=== PATIENT | female | born 1950 | race American Indian/Alaskan Native ===

== ENCOUNTER 2016-12-18 10:19 | Emergency (ER) | payer MEDICARE ==
[2016-12-18] MEDS ORDERED: NS 0.9% 1000 ML* 1,000 ML IV ONE (10:49)
[2016-12-18] MEDS ORDERED: Ondansetron INJ* 2 MG/ML VIAL IV ONE (11:20)
[2016-12-18] MEDS ORDERED: Meclizine TAB* 12.5 MG PO ONE (11:20)
[2016-12-18] MEDS ORDERED: Meclizine TAB* 12.5 MG ONE (11:23)
[2016-12-18] MEDS ORDERED: Ondansetron INJ* 2 MG/ML VIAL ONE (11:23)
--- NOTE | 2016-12-18 11:25 | RAD ---
INDICATION: Dizziness. COMPARISON: There are no prior studies available for comparison. TECHNIQUE: Contiguous axial sections of the brain were obtained from the skull base to the vertex without contrast. FINDINGS: The ventricles, cisterns and sulci are enlarged consistent with diffuse atrophy. No significant focal abnormality or mass effect is seen. There is no evidence for hemorrhage. No significant focal osseous abnormality is seen. The visualized portion of the paranasal sinuses and mastoid air cells appear clear. IMPRESSION: NO EVIDENCE FOR GROSS ACUTE INFARCT, MASS EFFECT OR HEMORRHAGE.
[2016-12-18 11:37] LABS: Hematocrit 44 % (35-47); Hemoglobin 14.5 g/dl (12.0-16.0); Mean Corpuscular HGB Conc 33 g/dl (31-36); Mean Corpuscular Hemoglobin 30 pg (27-31); Mean Corpuscular Volume 91 fL (80-97); Mean Platelet Volume 10 um3 (7.4-10.4); Red Blood Count 4.82 10^6/ul (4.0-5.4); Red Cell Distribution Width 14 % (10.5-15); White Blood Count 4.9 10^3/ul (3.5-10.8)
[2016-12-18 11:48] LABS: ALT 29 U/L (7-52); AST 19 U/L (13-39); Albumin 4.3 g/dL (3.2-5.2); Alkaline Phosphatase 69 U/L (34-104); Anion Gap 8 mmol/L (2-11); BUN/Creatinine Ratio 14.3 (8-20); Blood Urea Nitrogen 11 mg/dL (6-24); CO2 Carbon Dioxide 27 mmol/L (22-32); Calcium 9.5 mg/dL (8.6-10.3); Chloride 104 mmol/L (101-111); EGFR African American 96.8 (>60); EGFR Non-African American 75.2 (>60); Globulin 3.1 g/dL (2-4); Glucose 102 mg/dL (70-100); Magnesium 2.1 mg/dL (1.9-2.7); Potassium 3.5 mmol/L (3.5-5.0); Sodium 139 mmol/L (133-145); Total Protein 7.4 g/dL (6.4-8.9)
[2016-12-18 12:20] LABS: TSH (Thyroid Stimulating Horm) 1.99 mcIU/mL (0.34-5.60)
[2016-12-18 13:25] LABS: Alcohol < 10 mg/dL (<10)
[2016-12-18 13:26] LABS: C Reactive Protein 3.27 mg/L (< 5.00)
[2016-12-18 14:00] VITALS: BP 134/86
--- NOTE | 2016-12-19 08:22 | ED ---
Milton Hernandez Thomas, scribed for Wilfrido Irving MD on 12/18/16 at 1106 . Dizziness - HPI Summary HPI Summary: The pt is a 66 y/o F presenting to the ED c/o dizziness that began today at 09: 00. She is unsure whether she became dizzy from vigorous head movements. Her dizziness is characterized as room spinning. Her symptoms of generalized illness began 4 days ago. Pt additionally c/o intermittent nausea (onset last night after taking Delsym), runny nose, cough, postnasal drip, and SOB (when I get that feeling). Pt denies vomiting, CP, and palpitations. She has not had symptoms like these before. She describes GERD-related indigestion two days ago after having a couple beers, which was resolve dafter taking Nexium. PMHx: previously healthy. - History Of Current Complaint Chief Complaint: EDDizziness Stated Complaint: COUGH,DIZZINESS Time Seen by Provider: 12/18/16 10:49 Hx Obtained From: Patient Onset/Duration: Still Present, Gradually - onset this AM at 09:00 Timing: Constant Character: Room Spinning Aggravating Factor(s): Other - unsure whether movement worsens Alleviating Factor(s): Nothing Associated Signs And Symptoms: Positive: Nausea - intermittent, SOB, Other: - POS: runny nose, cough, postnasal drip; NEG: vomiting. Negative: Chest Pain, Palpitations - Allergies/Home Medications Allergies/Adverse Reactions: Allergies Allergy/AdvReac Type Severity Reaction Status Date / Time Amoxicillin Allergy Swelling Verified 11/25/15 15:29 Of Face,Lips,& Throat Sulfa Antibiotics Allergy Swelling Verified 11/25/15 15:29 Of Face,Lips,& Throat PMH/Surg Hx/FS Hx/Imm Hx Previously Healthy: Yes Endocrine/Hematology History: Denies: Hx Diabetes, Hx Systemic Lupus Erythematosus Cardiovascular History: Denies: Hx Congestive Heart Failure, Hx Hypertension Respiratory History: Denies: Hx Asthma History: Denies: Hx Dialysis, Hx Renal Disease Musculoskeletal History: Denies: Hx Rheumatoid Arthritis - Cancer History Hx Chemotherapy: No Hx Radiation Therapy: No Infectious Disease History: No Infectious Disease History: Denies: History Other Infectious Disease, Traveled Outside the [place] in Last 30 Days - Family History Known Family History: Positive: Hypertension - Social History Alcohol Use: Rare Substance Use Type: Reports: None Smoking Status (MU): Former Smoker Review of Systems Constitutional: Negative Eyes: Negative ENT: Other - POS: postnasal drip Positive: Nasal Discharge Cardiovascular: Negative Negative: Palpitations, Chest Pain Positive: Shortness Of Breath - ("when I get that feeling"), Cough Positive: Nausea - intermittent nausea (onset last night after taking Delsym). Negative: Vomiting Genitourinary: Negative Musculoskeletal: Negative Skin: Negative Neurological: Other - POS: dizziness, onset today at 09:00 ("room spinning") Psychological: Normal All Other Systems Reviewed And Are Negative: Yes Physical Exam - Summary Physical Exam Summary: VITAL SIGNS: Reviewed. GENERAL: ~Patient is a well-developed and nourished normal who is lying comfortable in the stretcher. ~Patient is not in any acute respiratory distress. HEAD AND FACE: No signs of trauma. ~No ecchymosis, hematomas or skull depressions. No sinus tenderness. EYES: PERRLA, EOMI x 2, No injected conjunctiva, no nystagmus. EARS: Hearing grossly intact. Ear canals and tympanic membranes are within normal limits. MOUTH: Oropharynx within normal limits. NECK: Supple, trachea is midline, no adenopathy, no JVD, no carotid bruit, no c- spine tenderness, neck with full ROM. CHEST: Symmetric, no tenderness at palpation LUNGS: Clear to auscultation bilaterally. No wheezing or crackles. CVS: Regular rate and rhythm, S1 and S2 present, no murmurs or gallops appreciated. ABDOMEN: Soft, non-tender. No signs of distention. No rebound no guarding, and no masses palpated. Bowel sounds are normal. EXTREMITIES: FROM in all major joints, no edema, no cyanosis or clubbing. NEURO: Alert and oriented x 3. No acute neurological deficits. Speech is normal and follows commands. SKIN: Dry and warm Triage Information Reviewed: Yes Vital Signs On Initial Exam: Initial Vitals Temp Pulse Resp BP Pulse Ox 97.8 F 74 16 162/116 99 12/18/16 10:23 12/18/16 10:12/18/16 10:12/18/16 10:12/18/16 10:23 Vital Signs Reviewed: Yes Diagnostics - Vital Signs Vital Signs Temp Pulse Resp BP Pulse Ox 12/18/16 10: 97.8 F 74 16 162/116 99 - Laboratory Lab Results: Lab Results 12/18/16 12/18/16 12/18/16 Range/Units 11:18 11:18 11:18 WBC 4.9 (3.5-10.8) 10^3/ul RBC 4.82 (4.0-5.4) 10^6/ul Hgb 14.5 (12.0-16.0) g/dl Hct 44 (35-47) % MCV 91 (80-97) fL MCH 30 (27-31) pg MCHC 33 (31-36) g/dl RDW 14 (10.5-15) % Plt Count 221 (150-450) 10^3/ul MPV 10 (7.4-10.4) um3 Neut % (Auto) 71.8 (38-83) % Lymph % (Auto) 17.3 L (25-47) % [place] % (Auto) 8.0 (1-9) % Eos % (Auto) 1.6 (0-6) % Baso % (Auto) 1.3 (0-2) % Absolute Neuts (auto) 3.5 (1.5-7.7) 10^3/ul Absolute Lymphs (auto) 0.8 L (1.0-4.8) 10^3/ul Absolute Monos (auto) 0.4 (0-0.8) 10^3/ul Absolute Eos (auto) 0.1 (0-0.6) 10^3/ul Absolute Basos (auto) 0.1 (0-0.2) 10^3/ul Absolute Nucleated RBC 0 10^3/ul Nucleated RBC % 0 Sodium 139 (133-145) mmol/L Potassium 3.5 (3.5-5.0) mmol/L Chloride 104 (101-111) mmol/L Carbon Dioxide 27 (22-32) mmol/L Anion Gap 8 (2-11) mmol/L BUN 11 (6-24) mg/dL Creatinine 0.77 (0.51-0.95) mg/dL Est GFR ( Amer) 96.8 (>60) Est GFR (Non-Af Amer) 75.2 (>60) BUN/Creatinine Ratio 14.3 (8-20) Glucose 102 H (70-100) mg/dL Lactic Acid 1.6 (0.5-2.0) mmol/L Calcium 9.5 (8.6-10.3) mg/dL Magnesium 2.1 (1.9-2.7) mg/dL Total Bilirubin 0.50 (0.2-1.0) mg/dL AST 19 (13-39) U/L ALT 29 (7-52) U/L Alkaline Phosphatase 69 (34-104) U/L Troponin I 0.00 (<0.04) ng/mL C-Reactive Protein 3.27 (< 5.00) mg/L B-Natriuretic Peptide ( - 100) pg/mL Total Protein 7.4 (6.4-8.9) g/dL Albumin 4.3 (3.2-5.2) g/dL Globulin 3.1 (2-4) g/dL Albumin/Globulin Ratio 1.4 (1-3) TSH 1.99 (0.34-5.60) mcIU/mL Serum Alcohol < 10 (<10) mg/dL 12/18/16 Range/Units 11:18 WBC (3.5-10.8) 10^3/ul RBC (4.0-5.4) 10^6/ul Hgb (12.0-16.0) g/dl Hct (35-47) % MCV (80-97) fL MCH (27-31) pg MCHC (31-36) g/dl RDW (10.5-15) % Plt Count (150-450) 10^3/ul MPV (7.4-10.4) um3 Neut % (Auto) (38-83) % Lymph % (Auto) (25-47) % [place] % (Auto) (1-9) % Eos % (Auto) (0-6) % Baso % (Auto) (0-2) % Absolute Neuts (auto) (1.5-7.7) 10^3/ul Absolute Lymphs (auto) (1.0-4.8) 10^3/ul Absolute Monos (auto) (0-0.8) 10^3/ul Absolute Eos (auto) (0-0.6) 10^3/ul Absolute Basos (auto) (0-0.2) 10^3/ul Absolute Nucleated RBC 10^3/ul Nucleated RBC % Sodium (133-145) mmol/L Potassium (3.5-5.0) mmol/L Chloride (101-111) mmol/L Carbon Dioxide (22-32) mmol/L Anion Gap (2-11) mmol/L BUN (6-24) mg/dL Creatinine (0.51-0.95) mg/dL Est GFR ( Amer) (>60) Est GFR (Non-Af Amer) (>60) BUN/Creatinine Ratio (8-20) Glucose (70-100) mg/dL Lactic Acid (0.5-2.0) mmol/L Calcium (8.6-10.3) mg/dL Magnesium (1.9-2.7) mg/dL Total Bilirubin (0.2-1.0) mg/dL AST (13-39) U/L ALT (7-52) U/L Alkaline Phosphatase (34-104) U/L Troponin I (<0.04) ng/mL C-Reactive Protein (< 5.00) mg/L B-Natriuretic Peptide 102 H ( - 100) pg/mL Total Protein (6.4-8.9) g/dL Albumin (3.2-5.2) g/dL Globulin (2-4) g/dL Albumin/Globulin Ratio (1-3) TSH (0.34-5.60) mcIU/mL Serum Alcohol (<10) mg/dL Result Diagrams: 12/18/16 11:18 12/18/16 11:18 Lab Statement: Any lab studies that have been ordered have been reviewed, and results considered in the medical decision making process. - CT CT Brain CT Interpretation: No Acute Changes - NO EVIDENCE FOR GROSS ACUTE INFARCT, MASS EFFECT OR HEMORRHAGE. CT Interpretation Completed By: Radiologist - EKG 10:37 Cardiac Rate: NL - 61 BPM EKG Interpretation: NSR. No ST Elevations. Dizzy Course/Dx - Course Assessment/Plan: The pt is a 66 y/o F presenting to the ED c/o dizziness that began today at 09:00. She is unsure whether she became dizzy from vigorous head movements. Her dizziness is characterized as room spinning. Her symptoms of generalized illness began 4 days ago. Pt additionally c/o intermittent nausea ( onset last night after taking Delsym), runny nose, cough, postnasal drip, and SOB (when I get that feeling). Pt denies vomiting, CP, and palpitations. She has not had symptoms like these before. She describes GERD-related indigestion two days ago after having a couple beers, which was resolve dafter taking Nexium. PMHx: previously healthy. The tests are without significant abnormality. Brain CT reveals NO EVIDENCE FOR GROSS ACUTE INFARCT, MASS EFFECT OR HEMORRHAGE. The pt refused a CXR. An EKG showed NSR without STEMI. In the ED course the patient was hydrated and given Antivert and the symptoms resolved. The patient was completely asymptomatic in the ED as a result. The patient ambulated to the bathroom and did not have dizziness. Therefore, I believe that the patient had a vertigo episode. I did a neurological exam before the patient was discharged and the patient has a normal neuro exam. She is hemodynamically stable and alert and oriented x3. - Diagnoses Differential Diagnosis/HQI/PQRI: CVA, Meniere's Disease - BPV, dizziness,, Seizure, Transient Ischemic Attack Provider Diagnoses: Vertigo Discharge - Discharge Plan Condition: Stable Disposition: HOME Prescriptions: Meclizine TAB* [Antivert 12.5 TAB*] 25 mg PO TID PRN #21 tab PRN Reason: Vertigo Patient Education Materials: Vertigo (ED) Referrals: Larry Guillen MD [Primary Care Provider] - 2 Days The documentation as recorded by the Milton patrick Thomas accurately reflects the service I personally performed and the decisions made by me, Wilfrido Irving MD.
== END 2016-12-18 14:03 | disposition home or self-care (01) ==
LOC: ED 10:19
DX: R42 Dizziness and giddiness (principal); Z88.0 Allergy status to penicillin; Z88.2 Allergy status to sulfonamides; Z87.891 Personal history of nicotine dependence
CPT/HCPCS: 36415; 70450; 80053; 80320; 83605; 83735; 83880; 84443; 84484; 85025; 86140; 93005; 96374; 99284; A9270-GY; G0480; J2405

== ENCOUNTER 2017-08-27 07:39 | Emergency (ER) | payer MEDICARE, MEDICAID ==
--- NOTE | 2017-08-27 08:30 | ED ---
Caet Hernandez Gabriel, scribed for Wilfrido Irving MD on 08/27/17 at 0811 . Throat Pain/Nasal Congestion - HPI Summary HPI Summary: This patient is a 66 year old F presenting to [facility] accompanied by her with a chief complaint of a possible detached left retina since yesterday. Pt states yesterday she experienced blurred vision, black floaters, and a black line in her vision. The patient rates the achy pain 1/10 in severity. Patient reports HALEY. - History of Current Complaint Chief Complaint: EDEyeProblem Time Seen by Provider: 08/27/17 07:52 Hx Obtained From: Patient Onset/Duration: Lasting Days - 1, Still Present Severity: Mild Associated Signs And Symptoms: Negative: Hoarseness - Allergies/Home Medications Allergies/Adverse Reactions: Allergies Allergy/AdvReac Type Severity Reaction Status Date / Time amoxicillin Allergy Anaphylatic Verified 08/27/17 07:42 Shock Sulfa (Sulfonamide Allergy Anaphylatic Verified 08/27/17 07:42 Antibiotics) Shock PMH/Surg Hx/FS Hx/Imm Hx Endocrine/Hematology History: Denies: Hx Diabetes, Hx Systemic Lupus Erythematosus Cardiovascular History: Denies: Hx Congestive Heart Failure, Hx Hypertension Respiratory History: Denies: Hx Asthma History: Denies: Hx Dialysis, Hx Renal Disease Musculoskeletal History: Denies: Hx Rheumatoid Arthritis - Cancer History Hx Chemotherapy: No Hx Radiation Therapy: No Infectious Disease History: No Infectious Disease History: Denies: History Other Infectious Disease, Traveled Outside the [place] in Last 30 Days - Family History Known Family History: Positive: Hypertension - Social History Alcohol Use: Rare Substance Use Type: Reports: None Smoking Status (MU): Former Smoker Review of Systems Eyes: Other - black floaters Positive: Blurred Vision Positive: Headache All Other Systems Reviewed And Are Negative: Yes Physical Exam - Summary Physical Exam Summary: VITAL SIGNS: Reviewed. GENERAL: Patient is a well-developed and nourished female who is lying comfortable in the stretcher. Patient is not in any acute respiratory distress. HEAD AND FACE: No signs of trauma. No ecchymosis, hematomas or skull depressions. No sinus tenderness. EYES: PERRLA, EOMI x 2, No injected conjunctiva, no nystagmus. The retina is currently not visible because the eye is not dilated EARS: Hearing grossly intact. Ear canals and tympanic membranes are within normal limits. MOUTH: Oropharynx within normal limits. NECK: Supple, trachea is midline, no adenopathy, no JVD, no carotid bruit, no c- spine tenderness, neck with full ROM. CHEST: Symmetric, no tenderness at palpation LUNGS: Clear to auscultation bilaterally. No wheezing or crackles. CVS: Regular rate and rhythm, S1 and S2 present, no murmurs or gallops appreciated. ABDOMEN: Soft, non-tender. No signs of distention. No rebound no guarding, and no masses palpated. Bowel sounds are normal. EXTREMITIES: FROM in all major joints, no edema, no cyanosis or clubbing. NEURO: Alert and oriented x 3. No acute neurological deficits. Speech is normal and follows commands. SKIN: Dry and warm Triage Information Reviewed: Yes Vital Signs On Initial Exam: Initial Vitals Temp Pulse Resp BP Pulse Ox 97.5 F 65 16 145/90 97 08/27/17 07:43 08/27/17 07:43 08/27/17 07:43 08/27/17 07:43 08/27/17 07:43 Vital Signs Reviewed: Yes Diagnostics - Vital Signs Vital Signs Temp Pulse Resp BP Pulse Ox 08/27/17 07:43 97.5 F 65 16 145/90 97 - Laboratory Lab Statement: Any lab studies that have been ordered have been reviewed, and results considered in the medical decision making process. EENT Course/Dx - Course Assessment/Plan: This patient is a 66 year old F presenting to [facility] accompanied by her with a chief complaint of a possible detached left retina since yesterday. Pt states yesterday she experienced blurred vision, black floaters, and a black line in her vision. The patient rates the achy pain 1/10 in severity. Patient reports HALEY. There is concern for a possible retina detachment, I discussed the case with [facility] and accepted the pt for transfer. The patient declined ambulance transport. She will be transported by her and they will go directly to the [place] ED for further evaluation by an pediatric intensive physician. The patient visual acuity with glasses is: right eye 20/20, left 20/40. The pt is hemodynamically stable, alert and oriented x3. We discussed patient care with [facility] and they recommended they accepted the patient for admission. The accepting physician is Dr. Tanski. Dx possibly retinal detachment. Patient will be discharge and report directly to the [facility] ED. The patient is agreeable with this plan. - Diagnoses Provider Diagnoses: Eye abnormality, Retinal defect - Provider Notifications Time Discussed With Above Provider: 08:15 Instructed by Provider To: Other - We discussed patient care with [facility] and they recommended they accepted the patient for admission. The accepting physician is Dr. Wall. Discharge - Sign-Out/Discharge Documenting (check all that apply): Discharge - Discharge Plan Condition: Stable Disposition: HOME Referrals: Larry Guillen MD [Primary Care Provider] - - Billing Disposition and Condition Condition: STABLE Disposition: HOME The documentation as recorded by the Cate patrick Gabriel accurately reflects the service I personally performed and the decisions made by , Wilfrido Irving MD.
[2017-08-27 08:59] VITALS: BP 131/81
== END 2017-08-27 08:55 | disposition home or self-care (01) ==
LOC: ED 07:39
DX: H57.9 Unspecified disorder of eye and adnexa (principal); H35.89 Other specified retinal disorders; Z88.0 Allergy status to penicillin; Z88.2 Allergy status to sulfonamides; Z87.891 Personal history of nicotine dependence
CPT/HCPCS: 99282

== ENCOUNTER 2019-09-22 08:04 | Emergency (ER) | payer MEDICARE, MEDICAID ==
--- OUTSIDE RECORDS SUMMARY | 2019-09-22 08:20 | XMS REPORT | Continuity of Care Document ---
:1950 External Reference #:[id number] Author Name Clark Aguilera MD Address [address] [place] [address] Care Team Providers Name Role Phone Valeria Harris MD - Dermatology Care Team Information Qualitative Executive Researcher [phone] Lee Bonilla MD - Obstetrics Care Team Information Qualitative Executive Researcher [phone] Teressa Banda DO - Hospitalist Care Team Information Qualitative Executive Researcher Problems Active Problems Provider Date Localized, primary osteoarthritis Irene Torres M.D. Onset: 01/26/2015 Cyst of left ovary Lrary Guillen M.D.,FACP Onset: 11/26/2015 Diverticulosis of sigmoid colon Leon Paiz NP Onset: 03/07/2016 Note: Sandeep performed colonoscopy Dr. Javier repeat in 10 years Internal hemorrhoids Leon Paiz NP Onset: 03/07/2016 Note: Sandeep performed colonoscopy Dr. Javier repeat in 10 years Retinal tear Larry Guillen M.D.,FACP Onset: 01/08/2018 Note: LT, spontaneous Mixed hyperlipidemia Larry Guillen M.D.,FACP Onset: 01/08/2018 Aortic valve stenosis Larry Guillen M.D.,FACP Onset: 01/08/2018 Note: mild Osteoporosis Larry Guillen M.D.,FACP Onset: 05/25/2018 Social History Type Date Description Comments Sex Unknown Tobacco Use Start: Unknown Patient is a current cigarette smoker, smokes every day Tobacco Use Start: Unknown Currently smokes 1-5 Cigarettes Daily Cigarette Use Pack Years - 15 Smoking Status Reviewed: 02/04/19 Currently smokes 1-5 Cigarettes Daily ETOH Use 01/08/2018 consumes 1 beer per week Recreational Drug Use Denies Drug Use Tobacco Use Start: Unknown Patient is a current smoker, smokes some days Exercise Type/Frequency Exercises regularly Exercise Type/Frequency yoga, running, and nothing last week walking due to knee injury Allergies, Adverse Reactions, Alerts Active Allergies Reaction Severity Comments Date Sulfa Antibiotics Urticaria 01/12/2015 Amoxicillin Urticaria 01/12/2015 Doxycycline throat closes up Severe 04/01/2016 Tetracycline closes her throat 07/08/2016 Medications Active Medications SIG Qnty Indications Ordering Date Provider Pantoprazole Sodium 1 tablet by mouth 90tabs K21.9 [facility] 08/28/2019 two times a day. MD Ale 40mg Tablets DR Hydroxyzine HCL take one tablet by 14tabs F41.9 [facility] 08/28/2019 10mg mouth two times a MD Ale Tablets day for 1 week. Atorvastatin Calcium 1 by mouth every 30tabs Teressa Banda, 02/05/2019 night DO 20mg Tablets Calcium take 1 tablet by 30tabs M81.0 Teressa Banda, 02/04/2019 Carbonate-Vitamin D mouth daily DO [id number] Tablets Shingrix 0.5 milliliters 2units Larry Munroe 01/08/2018 50mcg intramuscular now Ant Guillen,FACP Suspension Rec and 2-3 months later repeat Pneumococcal,Unspeci Unknown fied Injection Medications Administered in Office Medication SIG Qnty Indications Ordering Provider Date Depomedrol 80MG Irene Torres M.D. 01/12/2015 Injection Immunizations CPT Code Status Date Vaccine Reaction Lot # [id number] Given 03/12/2019 Pneumonia Vaccine No immdiate reaction [id number] Given 02/06/2019 Fluzone High Dose [id number] Given 03/14/2018 Influenza Virus Vaccine, Quadrivalent, Split, Preservative Free [id number] Given 03/14/2018 Fluzone High Dose 56212 Given 04/03/2017 Influenza Virus Vaccine, [id number] Quadrivalent, Split, Preservative Free 53031 Given 04/03/2017 Pneumococcal Conjugate [id number] Vaccine 13 Valent For Intramuscular Use Vital Signs Date Vital Result Comment 02/04/2019 9:18am Height 66.25 inches 5'6.25" Weight 185.00 lb Heart Rate 62 /min BP Systolic 133 mmHg BP Diastolic 81 mmHg O2 % BldC Oximetry 98 % BMI (Body Mass Index) 29.6 kg/m2 01/08/2018 9:05am Height 66.25 inches 5'6.25" Weight 179.00 lb Heart Rate 62 /min BP Systolic Sitting 120 mmHg BP Diastolic Sitting 70 mmHg Body Temperature 97.7 F O2 % BldC Oximetry 95 % BMI (Body Mass Index) 28.7 kg/m2 Results Description No Information Available Procedures Date Code Description Status 04/02/2018 046901657 Diabetic Retinal Eye Exam Completed 02/05/2018 [id number] Bone Mineral Density Test Completed 02/05/2018 [id number] Mammogram Completed 12/07/2017 [id number] Diabetic Retinal Eye Exam Completed 12/19/2016 [id number] Mammogram Completed 03/07/2016 [id number] Colonoscopy Completed 12/07/2015 [id number] Mammogram Completed Medical Devices Description No Information Available Encounters Description No Information Available Assessments Date Code Description Provider 08/28/2019 K21.9 Gastro-esophageal reflux disease without Clark Aguilera MD esophagitis 08/28/2019 F41.9 Anxiety disorder, unspecified Clark Aguilera MD 03/12/2019 Z23 Encounter for immunization Nurse Visit [facility] Plan of Treatment 08/28/2019 - Clark Aguilera MDK21.9 Gastro-esophageal reflux disease without esophagitisNew Medication:Pantoprazole Sodium 40 mg - 1 tablet by mouth two times a day.Comments:1. Start taking Pantoprazole 40 mg two times a day.2. Stop taking Pepcid and Tums.3. Drink plenty ofwater.4. Try to stay upright after your meal for atleast 1 hour.5. Follow up in 2 weeks.Follow up:2 weeks.F41.9 Anxiety disorder, unspecifiedNew Medication:Hydroxyzine HCL 10 mg - take one tablet by mouth two times a day for 1 week.Comments:1. Start taking Hydroxyzine 10 mg by mouth two times a day.2. Give us a call next week and let us know about your anxiety. Functional Status Description No Information Available Mental Status Description No Information Available Referrals Description No Information Available
--- OUTSIDE RECORDS SUMMARY | 2019-09-22 08:20 | XMS REPORT | Continuity of Care Document ---
:1950 External Reference #:[id number] Author Name Rafita Zhang NP (transmitted by agent of provider Katrina Escobar) Address [address], [place] [address] Care Team Providers Name Role Phone Valeria Harris MD - Dermatology Care Team Information Senior Software Systems Engineer [phone] Lee Bonilla MD - Obstetrics Care Team Information Senior Software Systems Engineer Teressa Banda DO - Hospitalist Care Team Information Senior Software Systems Engineer [phone] Problems Active Problems Provider Date Localized, primary osteoarthritis Irene Torres M.D. Onset: 01/26/2015 Cyst of left ovary Larry Guillen M.D.,FACP Onset: 11/26/2015 Diverticulosis of sigmoid colon Leon Paiz NP Onset: 03/07/2016 Note: Sandeep performed colonoscopy Dr. Javier repeat in 10 years Internal hemorrhoids Leon Paiz NP Onset: 03/07/2016 Note: Sandeep performed colonoscopy Dr. Javier repeat in 10 years Retinal tear Larry Guillen M.D.,FACP Onset: 01/08/2018 Note: LT, spontaneous Mixed hyperlipidemia Larry Guillen M.D.,STEPHANIEP Onset: 01/08/2018 Aortic valve stenosis Larry Guillen M.D.,STEPHANIEP Onset: 01/08/2018 Note: mild Osteoporosis Larry Guillen M.D.,FACP Onset: 05/25/2018 Adjustment disorder with anxious mood Rafita Zhang NP Onset: Social History Type Date Description Comments Sex [...] Medications SIG Qnty Indications Ordering Date Provider Buspirone HCL 1 tablet by mouth 60tabs F41.9 Naida 09/18/2019 10mg twice a day Ant Sadler Tablets Pantoprazole Sodium 1 tablet by mouth 90tabs K21.9 Clark Aguilera, 2019 two times a day. 40mg Tablets Hydroxyzine HCL take one tablet by 30tabs F41.9 Tereso Sanchez, KATIE 08/28/2019 mouth two times a 10mg Tablets day for 1 week. Atorvastatin 1 by mouth every 30tabs Teressa Banda, 02/05/2019 Calcium night DO 20mg Tablets Calcium take 1 tablet by 30tabs M81.0 Teressa Banda, 02/04/2019 Carbonate-Vitamin D mouth daily DO 300-712uj-Eogl Tablets Shingrix 0.5 milliliters 2units Larry Munroe 01/08/2018 50mcg intramuscular now Ant Guillen,FACP Suspension Rec and 2-3 months later repeat Pneumococcal,Unspec Unknown ified Injection Medications Administered in Office Medication SIG Qnty Indications Ordering Provider Date Depomedrol 80MG Irene Torres M.D. 01/12/2015 Injection Immunizations CPT Code Status Date Vaccine Reaction Lot # [id number] Given 03/12/2019 Pneumonia Vaccine No immdiate reaction [id number] 24685 Given 02/06/2019 Fluzone High Dose 20274 Given 03/14/2018 Influenza Virus Vaccine, Quadrivalent, Split, Preservative Free 75082 Given 03/14/2018 Fluzone High Dose 82772 Given 04/03/2017 Influenza Virus Vaccine, [id number] Quadrivalent, Split, Preservative Free 16111 Given 04/03/2017 Pneumococcal Conjugate [id number] Vaccine 13 Valent For Intramuscular Use Vital [...] Available Procedures Date Code Description Status 04/02/2018 [id number] Diabetic Retinal Eye Exam Completed 02/05/2018 [id number] Bone Mineral Density Test Completed 02/05/2018 [id number] Mammogram Completed 12/07/2017 [id number] Diabetic Retinal Eye Exam Completed 12/19/2016 [id number] Mammogram Completed 03/07/2016 [id number] Colonoscopy Completed 12/07/2015 [id number] Mammogram Completed Medical Devices Description No Information Available Encounters Type Date Location Provider Dx Diagnosis Office Visit 09/16/2019 [employer] Rafita Moody K21.9 Gastro- esophageal 10:30a Mendoza Zhang NP reflux disease without esophagitis F41.9 Anxiety disorder, unspecified Office Visit 08/28/2019 [employer] [facility] Clark K21.9 Gastro-esophageal 8:00a Mendoza Aguilera MD reflux disease without [address] esophagitis F41.9 Anxiety disorder, unspecified Assessments Date Code Description Provider 09/16/2019 K21.9 Gastro-esophageal reflux disease Rafita Zhang NP without esophagitis 09/16/2019 F41.9 Anxiety disorder, unspecified Rafita Zhang NP 08/28/2019 K21.9 Gastro-esophageal reflux disease Clark Aguilera MD without esophagitis 08/28/2019 F41.9 Anxiety disorder, unspecified Clark Aguilera MD Plan of Treatment Future Appointment(s):09/30/2019 8:30 am - [facility] Rafita Zhang NPK21.9 Gastro- esophageal reflux disease without esophagitisComments:-You are currently managing your symptoms well. -As agreed, we will try cutting back Pantoprazole 40mg to once a day. -Take it during day time. -Call with any worsening symptoms or other issues. -Continue your current diet and lifestyle changes.Follow up:2 weeks telemed to discuss medications. pls send [facility] of today's to pt via portal message.F41.9 Anxiety disorder, unspecifiedComments:-You are less anxious and are managing your symptoms well. -As agreed, we will cut back down the Hydroxyzine to 1 pill at bedtime only to help with sleep. However, if you feel any anxiety or panic you can take another pill during day time to help with symptoms. -Continue your daily activities to keep you busy. -Call with any concerns. Functional Status Description No Information Available Mental Status Description No Information Available Referrals Description No Information Available
--- OUTSIDE RECORDS SUMMARY | 2019-09-22 08:20 | XMS REPORT | Continuity of Care Document ---
:1950 External Reference #:[id number] Author Name Clark Aguilera MD (transmitted by agent of provider Luma Tinsley) Address [address] [place] [address] Care Team Providers Name Role Phone Valeria Harris MD - Dermatology Care Team Information Trawl Net Maker [phone] Lee Bonilla MD - Obstetrics Care Team Information Trawl Net Maker Teressa Banda DO - Hospitalist Care Team Information Trawl Net Maker Problems Active Problems Provider Date Localized, primary [...] Sodium 1 tablet by mouth 90tabs K21.9 [facility] 08/28/2019 two times a day. MD Ale 40mg Tablets DR Hydroxyzine HCL take one tablet by 14tabs F41.9 [facility] 08/28/2019 10mg mouth two times a MD Ale Tablets day for 1 week. Atorvastatin Calcium 1 by mouth every 30tabs Teressa Banda, 02/05/2019 night DO 20mg Tablets Calcium take 1 tablet by 30tabs M81.0 Teressa Banda, 02/04/2019 Carbonate-Vitamin D mouth daily DO [id number]-Yxne Tablets Shingrix 0.5 milliliters 2units Larry Munroe 01/08/2018 50mcg intramuscular now Ant Guillen,FACP Suspension Rec and 2-3 months later repeat Pneumococcal,Unspeci Unknown fied Injection Medications Administered in Office Medication SIG Qnty Indications Ordering Provider Date Depomedrol 80MG Irene Torres M.D. 01/12/2015 Injection Immunizations CPT Code Status Date Vaccine Reaction Lot # [id number] Given 03/12/2019 Pneumonia Vaccine No immdiate reaction [id number] Given 02/06/2019 Fluzone High Dose 37825 Given 03/14/2018 Influenza Virus Vaccine, Quadrivalent, Split, Preservative Free 08862 Given 03/14/2018 Fluzone High Dose 48748 Given 04/03/2017 Influenza Virus Vaccine, [id number] Quadrivalent, Split, Preservative Free 28199 Given 04/03/2017 Pneumococcal Conjugate [id number] Vaccine 13 Valent For Intramuscular Use Vital [...] Available Procedures Date Code Description Status 04/02/2018 [id number] Diabetic Retinal Eye Exam Completed 02/05/2018 720673226 Bone Mineral Density Test Completed 02/05/2018 82473544 Mammogram Completed 12/07/2017 485739949 Diabetic Retinal Eye Exam Completed 12/19/2016 48734362 Mammogram Completed 03/07/2016 59940089 Colonoscopy Completed 12/07/2015 95131925 Mammogram Completed Medical Devices Description No Information Available Encounters Type Date Location Provider Dx Diagnosis Office Visit 08/28/2019 Supervisor [facility] Clark Aguilera, K21.9 Gastro- esophageal 8:00a Medicine - Suite reflux disease R without esophagitis F41.9 Anxiety disorder, unspecified Assessments Date Code Description Provider 08/28/2019 K21.9 Gastro-esophageal reflux disease without Clark Aguilera MD esophagitis 08/28/2019 F41.9 Anxiety disorder, unspecified Clark Aguilera MD 03/12/2019 Z23 Encounter for immunization Nurse Visit [facility] Plan of Treatment 08/28/2019 - Clark Aguilera [...]
--- OUTSIDE RECORDS SUMMARY | 2019-09-22 08:20 | XMS REPORT | Continuity of Care Document ---
:1950 External Reference #:[id number] Author Name Rafita Zhang NP Address [address], [place] [address] Care Team Providers Name Role Phone Valeria Harris MD - Dermatology Care Team Information Car Bracer Lee Bonilla MD - Obstetrics Care Team Information Car Bracer Teressa Banda DO - Hospitalist Care Team Information Car Bracer Problems Active Problems Provider Date Localized, primary [...] Sodium 1 tablet by mouth 90tabs K21.9 [facility] 08/28/2019 two times a day. MD Ale 40mg Tablets DR Hydroxyzine HCL take one tablet by 30tabs F41.9 Tereso Sanchez NP 08/28/2019 10mg mouth two times a Tablets day for 1 week. Atorvastatin Calcium 1 by mouth every 30tabs Teressa Banda, 02/05/2019 night DO 20mg Tablets Calcium take 1 tablet by 30tabs M81.0 Teressa Banda, 02/04/2019 Carbonate-Vitamin D mouth daily DO 146-690on-Jqlv Tablets Shingrix 0.5 milliliters 2units Larry Munroe 01/08/2018 50mcg intramuscular now Ant Guillen,FACP Suspension Rec and 2-3 months later repeat Pneumococcal,Unspeci Unknown fied Injection Medications Administered in Office Medication SIG Qnty Indications Ordering Provider Date Depomedrol 80MG Irene Torres M.D. 01/12/2015 Injection Immunizations CPT Code Status Date Vaccine Reaction Lot # [id number] Given 03/12/2019 Pneumonia Vaccine No immdiate reaction [id number] 18016 Given 02/06/2019 Fluzone High Dose 09878 Given 03/14/2018 Influenza Virus Vaccine, Quadrivalent, Split, Preservative Free 11511 Given 03/14/2018 Fluzone High Dose 92080 Given 04/03/2017 Influenza Virus Vaccine, [id number] Quadrivalent, Split, Preservative Free 93976 Given 04/03/2017 Pneumococcal Conjugate [id number] Vaccine 13 Valent For Intramuscular Use Vital [...] Available Procedures Date Code Description Status 04/02/2018 [id number] Diabetic Retinal Eye Exam Completed 02/05/2018 435886753 Bone Mineral Density Test Completed 02/05/2018 40907190 Mammogram Completed 12/07/2017 473276347 Diabetic Retinal Eye Exam Completed 12/19/2016 99595060 Mammogram Completed 03/07/2016 [id number] Colonoscopy Completed 12/07/2015 [id number] Mammogram Completed Medical Devices Description No Information Available Encounters Type Date Location Provider Dx Diagnosis Office Visit 08/28/2019 Scleroscope Tester Internal Clark Aguilera, K21.9 Gastro- esophageal 8:00a Medicine - Suite reflux disease R without esophagitis F41.9 Anxiety disorder, unspecified Assessments Date Code Description Provider 09/16/2019 K21.9 Gastro-esophageal reflux disease Rafita Zhang NP without esophagitis 09/16/2019 F41.9 Anxiety disorder, unspecified Rafita Zhang NP 08/28/2019 K21.9 Gastro-esophageal reflux disease Clark Aguilera MD without esophagitis 08/28/2019 F41.9 Anxiety disorder, unspecified Clark Aguilera MD Plan of Treatment 09/16/2019 - Rafita Zhang NPK21.9 Gastro-esophageal reflux disease without esophagitisComments:-You are currently managing [...]
[2019-09-22 08:24] VITALS: BP 139/102
--- NOTE | 2019-09-22 08:52 | UC ---
Nausea/Vomiting/Diarrhea HPI - HPI Summary HPI Summary: 69-year-old female presents with complaints of waking up most mornings with nausea for the past month. States she also has intermittent epigasttric burning and sometimes feels lightheaded. She had a telemedicine appointment with her primary care provider approximately 3 weeks ago who started her on hydroxyzine for anxiety and pantoprazole for GERD. States her symptoms did improve some. She had a follow up appointment on 09/18/2019 and her primary care provider decreased the doses of her hydroxyzine and pantoprazole and started her on buspirone. She states that over the last few days her nausea and heartburn have started to worsen again and she is very concerned she may have stomache cancer. 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 She also verbalizes a profound fear of dying. She has a history of depression and anxiety and has been on medication for this in the past. States she has a follow -up appointment with her PCP on 10/01/2019. Denies fever, chills, chest pain, palpitations, shortness of breath, diaphoresis, vomiting, diarrhea, blood in stools, unintentional weight loss, dysuria, frequency, urgency, or hematuria. - History of Current Complaint Chief Complaint: UCGI Stated Complaint: NAUSEA Time Seen by Provider: 09/22/19 08:09 Hx Obtained From: Patient Pain Intensity: 0 - Allergies/Home Medications Allergies/Adverse Reactions: Allergies Allergy/AdvReac Type Severity Reaction Status Date / Time amoxicillin Allergy Anaphylatic Verified 08/27/17 07:42 Shock Sulfa (Sulfonamide Allergy Anaphylatic Verified 08/27/17 07:42 Antibiotics) Shock Tetracyclines Allergy Hives Verified 09/22/19 08:13 Home Medications: Home Medications Atorvastatin* [Lipitor*] 20 mg PO 1700 09/22/19 [History Confirmed 09/22/19] Pantoprazole TAB * [Protonix TAB*] 40 mg PO DAILY 09/22/19 [History Confirmed ] busPIRone TAB* [Buspar TAB*] 10 mg PO BID 09/22/19 [History Confirmed 09/22/19] hydrOXYzine HCL TAB* [Atarax 10 MG TAB*] 10 mg PO BEDTIME 09/22/19 [History Confirmed 09/22/19] PMH/Surg Hx/FS Hx/Imm Hx Endocrine History: Dyslipidemia Psychological History: Anxiety, Depression - Surgical History Surgical History: None - Family History Known Family History: Positive: Hypertension - Social History Occupation: Employed Full-time Lives: With Family Alcohol Use: None Substance Use Type: Marijuana Substance Use Comment - Amount & Last Used: yesterday, for nausea Smoking Status (MU): Former Smoker Review of Systems All Other Systems Reviewed And Are Negative: Yes Constitutional: Negative: Fever, Chills Respiratory: Negative: Shortness Of Breath Cardiovascular: Negative: Chest Pain Gastrointestinal: Positive: Nausea. Negative: Abdominal Pain, Vomiting, Diarrhea Genitourinary: Negative: Dysuria, Hematuria, Frequency, Urgency Musculoskeletal: Positive: Negative Neurological/Mental Status: Positive: Negative Is Patient Immunocompromised?: No Physical Exam - Summary Physical Exam Summary: GENERAL APPEARANCE: Alert and cooperative older adult female who is visibly anxious and tearful. EYES: Conjunctiva clear. No drainage. EARS: External auditory canals and tympanic membranes clear, hearing grossly intact. NOSE: No nasal discharge. THROAT: Pharynx normal. No tonsilar inflammation, swelling, exudate, or lesions. Uvula midline. NECK: Neck supple, non-tender without lymphadenopathy. CARDIAC: Normal S1 and S2. No S3, S4 or murmurs. Rhythm is regular. There is no peripheral edema, cyanosis or pallor. Extremities are warm and well perfused. Capillary refill is less than 2 seconds. Peripheral pulses intact. LUNGS: Clear to auscultation without rales, rhonchi, wheezing or diminished breath sounds. ABDOMEN: Positive bowel sounds. Soft, nondistended, nontender. No guarding or rebound. No masses or hepatosplenomegally. MUSKULOSKELETAL: ROM intact to all extremities. No joint erythema or tenderness. Normal muscular development. Normal gait. SKIN: Skin normal color, texture and turgor with no lesions or eruptions. Triage Information Reviewed: Yes Vital Signs: Initial Vital Signs Temp 97.7 F 09/22/19 08:07 Pulse 65 09/22/19 08:07 Resp 16 09/22/19 08:07 BP 139/102 09/22/19 08:07 Pulse Ox 98 09/22/19 08:07 Vital Signs Reviewed: Yes Naus/Vom/Diarrhea Course/Dx - Course Course Of Treatment: 69-year-old female presents with complaints of waking up most mornings with nausea for the past month. States she also has intermittent epigasttric burning and sometimes feels lightheaded. She had a telemedicine appointment with her primary care provider approximately 3 weeks ago who started her on hydroxyzine for anxiety and pantoprazole for GERD. States her symptoms did improve some. She had a follow up appointment on 09/18/2019 and her primary care provider decreased the doses of her hydroxyzine and pantoprazole and started her on buspirone. She states that over the last few days her nausea and heartburn have started to worsen again and she is very concerned she may have stomache cancer. 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 She also verbalizes a profound fear of dying. She has a history of depression and anxiety and has been on medication for this in the past. States she has a follow-up appointment with her PCP on 10/01/2019. Denies fever, chills, chest pain , palpitations, shortness of breath, diaphoresis, vomiting, diarrhea, blood in stools, unintentional weight loss, dysuria, frequency, urgency, or hematuria. Afebrile. Mildly hypertensive otherwise vital signs stable. Patient was visibly anxious and tearful however her exam was overall unremarkable. I discussed with the patient that considering the duration and vagueness of her symptoms that it is unlikely that they are from a serious or life threatening condition and that I suspect that they are more likely related to her current anxiety and depression. I encouraged her to discuss possible blood work and imaging with her primary care provider as they are more familiar with her history and can interpret these results within the appropriate context. I also counseled her that it can take several weeks to see if the antidepressant she was prescribed will be effective and that she should continue as prescribed. She was encouraged to seek counseling to discuss ways to manage her stressors. She is to keep her appointment with her PCP as scheduled. Anticipatory guidance and warning symptoms requiring immediate evaluation in the emergency room were reviewed with the patient. Verbalizes understanding and agrees with plan of care. - Differential Dx/Diagnosis Differential Diagnoses - Female: Gall Bladder Disease, Peptic Ulcer Disease, Cancer, Esophagitis/Gastritis, Gastroenteritis (Viral), Gastroenteritis ( Bacterial), Peptic Ulcer Disease, Gastritis, Other - Depression, anxiety Provider Diagnosis: Nausea Condition At Discharge: Stable Discharge ED - Sign-Out/Discharge Documenting (check all that apply): Patient Departure All imaging exams completed and their final reports reviewed: No Studies - Discharge Plan Condition: Stable Disposition: HOME Patient Education Materials: Acute Nausea and Vomiting (ED), Anxiety (ED) Referrals: Yancy Valdez MD [Primary Care Provider] - (Keep your follow up appointment as scheduled.) Additional Instructions: Based on your history I suspect that your symptoms are not from a serious or life threatening condition and are likely from some anxiety and depression for which your primary care provider has started treatment. I would recommend that you keep your follow up appointment with your primary care provider as scheduled and discuss with them about doing some additional blood work or imaging to evaluate your symptoms for other potential causes. I would also recommend that you consider seeking some counseling to discuss ways to manage the many stressors you have in your life right now. You can contact [facility] for assistance at [phone] or contact a counselor of your choice. Seek immediate medical attention in the emergency room if you develop severe abdominal pain, persistent vomiting, blood in your vomit or bowel movements, chest pain, shortness of breath, or any worsening of symptoms. - Billing Disposition and Condition Condition: STABLE Disposition: Home
== END 2019-09-22 09:00 | disposition home or self-care (01) ==
LOC: UCEAST 08:04
DX: R11.0 Nausea (principal); E78.5 Hyperlipidemia, unspecified; F41.9 Anxiety disorder, unspecified; F32.9 Major depressive disorder, single episode, unspecified; Z79.899 Other long term (current) drug therapy; Z88.1 Allergy status to other antibiotic agents; Z88.0 Allergy status to penicillin; Z88.2 Allergy status to sulfonamides; Z87.891 Personal history of nicotine dependence
CPT/HCPCS: 99211; G0463